=== PATIENT | male | born 1990 | race Caucasian/White ===

== ENCOUNTER 2019-10-05 18:37 | Emergency (ER) | payer BC ==
[~2019-10-05] VITALS: Ht 167.6 cm; Wt 102.3 kg
[2019-10-05] MEDS ORDERED: AMOXICILLIN 50500 MG PO (18:51)
[2019-10-05] MEDS ORDERED: GOOD NEIGHBOR200 M1 PO (18:52)
[2019-10-05] MEDS ORDERED: VALACYCLOVIR1 GM PO (19:57)
[2019-10-05] MEDS ORDERED: PREDNISONE10 MG PO (19:57)
[2019-10-05 20:05] VITALS: BP 160/91
== END 2019-10-05 20:05 | disposition home or self-care (01) ==
LOC: ED 18:37
DX: G51.0 Bell's palsy (principal); J45.909 Unspecified asthma, uncomplicated; F17.290 Nicotine dependence, other tobacco product, uncomplicated; Z79.1 Long term (current) use of non-steroidal anti-inflammatories (NSAID); Z88.0 Allergy status to penicillin
CPT/HCPCS: J7512